=== PATIENT | female | born 1945 | race Caucasian/White ===

== ENCOUNTER 2024-07-17 12:42 | Emergency (ER) | payer BC, OTHER ==
[~2024-07-17] VITALS: Ht 162.6 cm; Wt 82.0 kg
--- NOTE | 2024-07-17 12:56 | ED.PDOC ---
History of Present Illness HPI Comments 78-year-old female brought in by EMS presents with a chief complaint of witnessed fall, low blood pressure, and right elbow pain. Patient was at a donation center and had a witnessed fall by staff there. Patient was sitting on the sidewalk when EMS arrived. Patient was hypotensive when they initially assessed her and her BP was 87/55, which they treated with 500cc of IV fluids. Patient has a hematoma to the right scalp. Patient denies any chest pain or other symptoms prior to her fall; unknown if it was mechanical. No loss of consciousness. Patient is not on blood thinners. Patient had a small right elbow abrasion but has full range of motion without any pain or swelling or deformity. Noted dried blood on the right scalp. No apparent swelling or hematoma. PMHx: Dementia, DM, Heart Murmur, Hard of Hearing PSHx: Denies Allergies: NKDA HPI: Poor Historian. REVIEW OF SYSTEMS: CONSTITUTIONAL: Denies acute: fever, diaphoresis, chills, generalized weakness. HEAD: Denies acute: headache, photophobia Eyes: Denies acute: Double vision, vision loss, eye pain, eye discharge. EARS: Denies acute: tinnitus, hearing loss, ear discharge, ear pain, THROAT: Denies acute: sore throat, swelling, difficulty swallowing , pain with swallowing, change in voice. NECK: Denies acute: neck pain, neck swelling, stiff neck. HEART: Denies acute : chest pain, palpitations, LUNGS: Denies acute: SOB, wheezing, cough, hemoptysis ABDOMEN: Denies acute: abdominal pain, Nausea, Vomiting, diarrhea, melena , hematemesis, hematochezia SKIN: Denies acute: rash, redness, lesions, itchiness. EXTREMITIES: Denies acute: calf pain, numbness, tingling, weakness, denies pain in extremity. Denies acute: Low back pain. Neuro: Denies acute: focal neurological deficit, motor or sensory focal neurological deficit, tremors, seizure like activity, confusion, dizziness, change in mental status, loss of bowel or bladder function, cauda equina like symptoms. : Denies acute: dysuria, hematuria, flank pain, increase in urinary frequency. PSYCH: Denies acute: hallucination, suicidal ideation, homicidal ideation. FEMALE: Denies acute: abnormal vaginal bleeding, foul odor, unusual discharge. PHYSICAL EXAM: General: ---no-----acute distress, awake and alert. Head: normocephalic, atraumatic. However there is evidence of dried blood on the right side. Wound was cleansed with Betadine and normal saline. And there was a small 1.5 cm laceration that will take few nuha to repair. Neck: supple, trachea is midline, no swelling. Cervical spine: Palpation of the posterior midline of the cervical spine reveals no focal swelling, erythema, focal tenderness to palpation. Patient has normal range of motion. Palpation of the remainder of the thoracic and lumbar spine reveals no focal tenderness to palpation or swelling. Throat: Normal phonation. Eyes:, no erythema, no purulent discharge, no proptosis, no icterus. Heart: regular rate, regular rhythm, no significant murmur appreciated. Lungs: no apparent respiratory distress, Able to speak in full sentences. No wheezing, no rhonchi, no crackles. No stridors Clear to auscultation bilaterally. Abdomen: non tender to palpation, non distended, soft, no guarding, no rebound, + bowel sounds. Obese Neuro: Awake, Alert, oriented to name, self, situation, follows commands GCS=15. Speech is normal. Skin: no petechia, no purpura, no cyanosis, non-pale, not jaundice. Lower extremities: --trace - Pitting edema no deformity, no focal swelling, no calf TTP. Makes eye contact. moves all four extremities. Face: no apparent facial droop. Pedal pulses are palpable. No nystagmus. No nuchal rigidity, Kernig's sign, Brudzinski's sign, no meningeal signs. ED COURSE: Time Seen by MD: 12:45 Reviewed Notes: Nurses Notes, Medications, Allergies Information Source: Patient, Emergency Med Personnel Mode of Arrival: EMS Past Medical History PAST MEDICAL HISTORY: Dementia, DM Past Medical History (Other): Tsde-oc-Huccboe, Heart Murmur Surgical History: Denies all surgeries NON DESTRUCTIVE EVALUATION SPECIALIST History: Denies all NON DESTRUCTIVE EVALUATION SPECIALIST Hx Family History Family History: Reviewed,noncontributory to illness Social History Smoker: Non-Smoker Alcohol: Denies ETOH Use Drugs: Denies Drug Use Lives In: Home Was a procedure done? Was a procedure done?: Yes Sedation Sedation?: No Laceration Repair : Location Right scalp Length 1.5 cm Anesthetic: Nothing Laceration Repair Prep: Saline, Betadine Laceration Repair Wound Comple: epidermis/dermis repair Laceration Repair: Timnath (4) Informed consent obtained: Yes Risks, benefits, and alternati: Yes Differential Dx Considerations may include: Spinal cord injury, intracranial injury, fracture, bleeding, dislocation,. ACS, CVA, Includes but not limited to thyroid disease, encephalopathy, electrolyte abnormality, sepsis, infection, intracranial pathology, drug adverse effects, arrhythmia, kidney insufficiency, ACS, CVA, malignancy, anemia X-Ray, Labs, Meds, VS Vital Signs Date Time Temp Pulse Resp B/P (MAP) Pulse Ox O2 Delivery O2 Flow Rate FiO2 07/17/24 17:52 100 16 96 Room Air 07/17/24 17:52 97.9 100 16 147/96 (113) 96 97.9 07/17/24 12:53 98.6 107 16 110/67 (81) 95 98.6 Lab Test 07/17/24 16:27 07/17/24 14:45 07/17/24 13:35 Range/Units Troponin I High Sensitivity 12 10 11 </=34 ng/L White Blood Count 11.1 H 4.4-10.8 10^3/uL Red Blood Count 4.84 4.0-5.20 10^6/uL Hemoglobin 14.1 12.2-16.2 g/dL Hematocrit 41.9 36.0-46.0 % Mean Corpuscular Volume 86.5 80.0-100.0 fL Mean Corpuscular Hemoglobin 29.2 28.0-32.0 pg Mean Corpuscular Hemoglobin Concent 33.8 32.0-36.0 g/dL Red Cell Distribution Width 13.5 11.8-14.3 % Platelet Count 230 140-450 10^3/uL Mean Platelet Volume 8.8 6.9-10.8 fL Neutrophils (%) (Auto) 71.5 37.0-80.0 % Lymphocytes (%) (Auto) 20.5 10.0-50.0 % Monocytes (%) (Auto) 5.0 0.0-12.0 % Eosinophils (%) (Auto) 2.3 0.0-7.0 % Basophils (%) (Auto) 0.7 0.0-2.0 % Neutrophils # (Auto) 7.9 1.6-8.6 10 ^3/uL Lymphocytes # (Auto) 2.3 0.4-5.4 10 ^3/uL Monocytes # (Auto) 0.6 0-1.3 10 ^3/uL Eosinophils # (Auto) 0.3 0-0.8 10 ^3/uL Basophils # (Auto) 0.1 0-0.2 10 ^3/uL Nucleated Red Blood Cells 0.1 % Sodium Level 139 136-145 mmol/L Potassium Level 4.1 3.5-5.1 mmol/L Chloride Level 107 98-107 mmol/L Carbon Dioxide Level 24 20-31 mmol/L Anion Gap 8 5-15 Blood Urea Nitrogen 19 9-23 mg/dL Creatinine 1.04 H 0.550-1.02 mg/dL Glomerular Filtration Rate Calc 54 >90 mL/min BUN/Creatinine Ratio 18.3 10.0-20.0 Serum Glucose 250 H 74-106 mg/dL Lactic Acid Level 1.5 0.4-2.0 mmol/L Calcium Level 9.8 8.7-10.4 mg/dL Magnesium Level 1.7 1.6-2.6 mg/dL Total Bilirubin 0.5 0.2-1.0 mg/dL Aspartate Amino Transferase (AST) 11 L 13-40 U/L Alanine Aminotransferase (ALT) 15 7-40 U/L Alkaline Phosphatase 88 46-116 U/L Total Protein 6.7 5.7-8.2 g/dL Albumin 4.5 3.2-4.8 g/dL PATIENT: CHE JIMENEZIAACCT: [id number]: [id number] : 1945 LOC: ER ROOM / BED: / AGE / SEX: 79 / F ADM STATUS: REG ER SERVICE 1251 ORDERING PHYSICIAN: PAPI CHAWLA DO PROCEDURE(s): CXRP - CHEST PORTABLE REASON: fall ORDER NUMBER(s): [id number], ACCESSION NUMBER(s): [id number] EXAM: XY CHEST PORTABLE Indication: Trauma Technique: Single frontal view of the chest was obtained Comparison: None FINDINGS: Lines and Tubes: None Lungs: No focal consolidation. Pleura: No effusion. No pneumothorax. Cardiomediastinal contours: Unremarkable Bones: No acute osseous abnormality. IMPRESSION: No acute cardiopulmonary disease. ATED BY: SKYLER FREEMAN MD DICTATED DATE/TIME: 07/17/24 1340 SIGNED BY: SKYLER RFEEMAN MD SIGNED DATE/TIME: 07/17/24 1340 PATIENT: AYAN JIMENEZ ACCT: [id number] UNIT: [id number] : 1945 LOC: ER ROOM / BED: / AGE / SEX: 79 / F ADM STATUS: REG ER SERVICE 1251 ORDERING PHYSICIAN: PAPI CHAWLA DO PROCEDURE(s): HWOCT - HEAD WITHOUT CONTRAST REASON: fall, head injury ORDER NUMBER(s): [id number], ACCESSION NUMBER(s): [id number] Procedure: CT HEAD WITHOUT CONTRAST Study Date and Requested Time: 07/17/2024 01:20 PM History: fall, head injury Comparison: None Dose: CTDI: 54.01 mGy DLP: 956.34 mGycm Technique: Multiplanar images obtained through the brain without intravenous contrast. 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 Moderate frontoparietal predominant brain atrophy with mild chronic small-vessel ischemic changes. No hemorrhages, masses, mass effect, midline shift, herniation or cytotoxic edema following a large vascular territory. No intra-axial or extra-axial fluid collections. No evidence of hydrocephalus. The basal cisterns are patent. The pituitary gland, sella and parasellar regions are unremarkable. The cerebellar tonsils are in normal position. The cerebellum is unremarkable. There is bilateral lens replacement. Otherwise, orbits and globes are unremarkable. Mucous retention cysts within right maxillary sinus. Minimal mucoperiosteal thickening of the ethmoid air cells and bilateral maxillary sinuses. The sphenoid sinuses and bilateral mastoids are clear. There are no worrisome calvarial lesions. There is mild soft tissue edema with subcutaneous emphysema over the right frontoparietal scalp. Impression: No evidence of acute intracranial hemorrhage. Postsurgical changes of Frontal craniotomy with associated bifrontal encephalomalacia. ATED BY: CYNDY FARRIS DO DICTATED DATE/TIME: 07/17/241348 SIGNED BY: CYNDY FARRIS DO SIGNED DATE/TIME: 07/17/24 1349 Time of 1ST Reevaluation: 13:15 Reevaluation 1ST: Unchanged Patient Education/Counseling: Diagnosis, Treatment Family Education/Counseling: No Family Present Comments Patient presented with the above HPI.-fall closed head injury-----workup was initiated. patient was found with the above mentioned diagnosis. the following medications were ordered: please refer to order lists of meds and tests obtained by myself Dr. Chawla. Patient ED course and VS have been stabilized. Patient has been reassessed in the ED and remained in a stable condition. Pertinent incidental findings were discussed with the patient and/or family. Patient/family voices understanding and is agreeable with plan. Patient has been observed in the ED adequate length of time to insure improvement/stability. Escalation of care considered: Consideration of escalation to observation or admission Patient was not able to provide us with a urine sample. Right scalp laceration was cleansed and repaired with four nuha. Wound care instructions given to the patient. Patient was DISCHARGED home in a stable condition. All the reports of any imaging studies that were ordered by myself were reviewed by myself. Departure 1 Departure Time of Disposition: 17:39 Impression: Primary Impression: Fall from ground level Additional Impressions: Closed head injury Scalp laceration Hypotensive episode Disposition: 01 HOME / SELF CARE / HOMELESS Condition: Stable Additional Instructions: Additional instructions: You MUST follow-up with your primary care/family doctor in 1 to 2 days. If you are unable to see your primary care/family doctor, please return to our emergency room for re-assessment and re-evaluation in 1 to 2 days. Return to the emergency room here in our facility or to the nearest ER [facility] if your symptoms change or worsen. CONSULTATIONS: you MUST Follow-up for consultation as soon as possible with: -neurology and cardiology in 1-2 days. Please call for appointment. You MUST call the consultants office yourself to make an appointment. You may need to arrange that through your insurance and/or your primary/family doctor. If you are unable to see the product development consultant in 1 to 2 days, you must return to our emergency room (or any other ER of your choice) for re-assessment and re- evaluation. Adequate fluid hydration. Monitoring blood pressure at home at least 3 times a day. Timnath removal in seven days. Do not submerge herself under any water or liquid in the next 48 hours. You may apply [id number] Neosporin triple antibiotics. Wound dressing and wound care instructions as given to you by the nurse. Below is a copy of your radiological report for follow up: [place] [address] Ph: [phone] DIAGNOSTIC IMAGING Diagnostic Imaging Report : [id number] Signed PATIENT: AYAN JIMENEZ ACCT: [id number] UNIT: [id number] : 1945 LOC: ER ROOM / BED: / AGE / SEX: 79 / F ADM STATUS: REG ER SERVICE 1251 ORDERING PHYSICIAN: PAPI CHAWLA DO PROCEDURE(s): HWOCT - HEAD WITHOUT CONTRAST REASON: fall, head injury ORDER NUMBER(s): [id number], ACCESSION NUMBER(s): [id number] Procedure: CT HEAD WITHOUT CONTRAST Study Date and Requested Time: 07/17/2024 01:20 PM History: fall, head injury Comparison: None Dose: CTDI: 54.01 mGy DLP: 956.34 mGycm Technique: Multiplanar images obtained through the brain without intravenous co ntrast. 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 Moderate frontoparietal predominant brain atrophy with mild chronic small-vessel ischemic changes. No hemorrhages, masses, mass effect, midline shift, herniation or cytotoxic edema following a large vascular territory. No intra-axial or extra-axial fluid collections. No evidence of hydrocephalus. The basal cisterns are patent. The pituitary gland, sella and parasellar regions are unremarkable. The c erebellar tonsils are in normal position. The cerebellum is unremarkable. There is bilateral lens replacement. Otherwise, orbits and globes are unremarkable. Mucous retention cysts within right maxillary sinus. Minimal mucoperiosteal thickening of the ethmoid air cells and bilateral maxillary sinuses. The sphenoid sinuses and bilateral mastoids are clear. There are no worrisome calvarial lesions. There is mild soft tissue edema with subcutaneous emphysema over the right frontoparietal scalp. Impression: No evidence of acute intracranial hemorrhage. Postsurgical changes of Frontal craniotomy with associated bifrontal encephalom alacia. ATED BY: CYNDY FARRIS DO DICTATED DATE/TIME: 07/17/24 1349 SIGNED BY: CYNDY FARRIS DO SIGNED DATE/TIME: 07/17/24 1349 CC: Discharged With: Self Critical Care Note Critical Care Time?: No Heart Score Heart Score: Heart Score Response (Comments) Value History Slightly Suspicious 0 EKG Normal 0 Age >65 2 Risk Factors 1 or 2 risk factors 1 Troponin Normal limit 0 Total 3 I personally scribed for PAPI CHAWLA DO ([email or web address]) on 07/17/24 at 12:56. Electronically submitted by Thaddeus Boyd ([email or web address]). I personally scribed for PAPI CHAWLA DO ([email or web address]) on 07/17/24 at 14:00. Electronically submitted by Thaddeus Boyd ([email or web address]). PAPI CHAWLA DO July 17, 2024 12:56
--- NOTE | 2024-07-17 13:42 | DVH ---
EXAM: XY CHEST PORTABLE Indication: Trauma Technique: Single frontal view of the chest was obtained Comparison: None FINDINGS: Lines and Tubes: None Lungs: No focal consolidation. Pleura: No effusion. No pneumothorax. Cardiomediastinal contours: Unremarkable Bones: No acute osseous abnormality. IMPRESSION: No acute cardiopulmonary disease.
--- NOTE | 2024-07-17 13:51 | DVH ---
Procedure: CT HEAD WITHOUT CONTRAST Study Date and Requested Time: 07/17/2024 01:20 PM History: fall, head injury Comparison: None Dose: CTDI: 54.01 mGy DLP: 956.34 mGycm Technique: Multiplanar images obtained through the brain without intravenous contrast. 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 Moderate frontoparietal predominant brain atrophy with mild chronic small-vessel ischemic changes. No hemorrhages, masses, mass effect, midline shift, herniation or cytotoxic edema following a large v ascular territory. No intra-axial or extra-axial fluid collections. No evidence of hydrocephalus. The basal cisterns are patent. The pituitary gland, sella and parasellar regions are unremarkable. The cerebellar tonsils are in nor mal position. The cerebellum is unremarkable. There is bilateral lens replacement. Otherwise, orbits and globes are unremarkable. Mucous retention cysts within right maxillary sinus. Minimal mucoperiosteal thickening of the ethmoid air cells and b ilateral maxillary sinuses. The sphenoid sinuses and bilateral mastoids are clear. There are no worri some calvarial lesions. There is mild soft tissue edema with subcutaneous emphysema over the right fr ontoparietal scalp. Impression: No evidence of acute intracranial hemorrhage. Postsurgical changes of Frontal craniotomy with associated bifrontal encephalomalacia.
[2024-07-17 13:55] LABS: Basophils # (auto) 0.1 10 ^3/uL (0-0.2); Basophils % (auto) 0.7 % (0.0-2.0); Eosinophils # (auto) 0.3 10 ^3/uL (0-0.8); Eosinophils % (auto) 2.3 % (0.0-7.0); Hematocrit 41.9 % (36.0-46.0); Hemoglobin 14.1 g/dL (12.2-16.2); Lymphocytes # (auto) 2.3 10 ^3/uL (0.4-5.4); Lymphocytes % (auto) 20.5 % (10.0-50.0); Mean Corpuscular Hemoglobin 29.2 pg (28.0-32.0); Mean Corpuscular Hgb Conc. 33.8 g/dL (32.0-36.0); Mean Corpuscular Volume 86.5 fL (80.0-100.0); Monocytes # (auto) 0.6 10 ^3/uL (0-1.3); Neutrophils # (auto) 7.9 10 ^3/uL (1.6-8.6); Neutrophils % (auto) 71.5 % (37.0-80.0); Nucleated Red Blood Cells % 0.1 %; Platelet Count (auto) 230 10^3/uL (140-450); Red Blood Cells 4.84 10^6/uL (4.0-5.20); Red Cell Distribution Width 13.5 % (11.8-14.3); White Blood Cell 11.1 10^3/uL (4.4-10.8)
[2024-07-17 14:07] LABS: Alanine Aminotransferase 15 U/L (7-40); Albumin 4.5 g/dL (3.2-4.8); Alkaline Phosphatase 88 U/L (46-116); Anion Gap 8 (5-15); BUN/Creatinine Ratio 18.3 (10.0-20.0); Blood Urea Nitrogen 19 mg/dL (9-23); Calcium 9.8 mg/dL (8.7-10.4); Carbon Dioxide 24 mmol/L (20-31); Magnesium 1.7 mg/dL (1.6-2.6); Potassium 4.1 mmol/L (3.5-5.1); Sodium 139 mmol/L (136-145); Total Protein 6.7 g/dL (5.7-8.2)
[2024-07-17 14:08] LABS: Bilirubin, Total 0.5 mg/dL (0.2-1.0)
[2024-07-17 14:09] LABS: Chloride 107 mmol/L (98-107)
[2024-07-17 14:10] LABS: Aspartate Aminotransferase 11 U/L (13-40); Glucose 250 mg/dL (74-106)
[2024-07-17 17:52] VITALS: BP 147/96; PULSE 100; RESP 16; TEMP 97.9; O2SAT 96
== END 2024-07-17 18:00 | disposition home or self-care (01) ==
LOC: EDBD 12:42 → ER 12:42 → EDUNIT# 12:42 → ER 18:00
DX: S01.01XA Laceration without foreign body of scalp, initial encounter (principal); R51.9 Headache, unspecified; I95.9 Hypotension, unspecified; Z79.899 Other long term (current) drug therapy; W18.39XA Other fall on same level, initial encounter; Y93.89 Activity, other specified; Y92.89 Other specified places as the place of occurrence of the external cause; Y99.8 Other external cause status
CPT/HCPCS: 12001; 36415; 70450; 71045; 80053; 83605; 83735; 84484; 85025